=== PATIENT | male | born 1950 ===

== ENCOUNTER 2018-06-12 07:29 | Day surgery (SDC) | payer MEDICARE, OTHER ==
[~2018-06-12 07:29] MED LIST: Acetaminophen TAB* 325 MG PO PRN; Buffered Lidocaine 0.9% SYRIN* 5 ML/SYR SYRINGE INTRADERM ONE
[2018-06-12] MEDS ORDERED: fentaNYL* 50 MCG/ML 2 ML VIAL (100 MCG VIAL) ONE (09:32)
[2018-06-12] MEDS ORDERED: Midazolam* 1 MG/ML 2 ML VIAL (2 MG) ONE (09:32)
[2018-06-12 10:35] VITALS: BP 107/51
[2018-06-12] MEDS ORDERED: Cyclopentolate 1% OPTH.SOL* 2 ML BTL ONE (13:36)
[2018-06-12] MEDS ORDERED: Phenylephrine 2.5% OPTH.SOL* 2 ML BTL ONE (13:36)
[2018-06-12] MEDS ORDERED: Tetracaine 0.5% OPTH.SOL 4 ML* 1 DROP BTL ONE (13:36)
[2018-06-12] MEDS ORDERED: Ketorolac 0.5% OPHTH (NF) 0.5 % 5 ML BTL ONE (13:36)
[2018-06-12] MEDS ORDERED: Lidocaine 1%* 5 ML VIAL ONE (13:36)
[2018-06-12] MEDS ORDERED: Neomycin/Polymy/Dex OPHTH.OIN* 3.5 GM ONE (13:36)
[2018-06-12] MEDS ORDERED: Tropicamide 1% OPTH.SOL* BTL ONE (13:36)
--- NOTE | 2018-06-13 12:22 | OP ---
DATE OF OPERATION: 06/12/18 - [facility] DATE OF : 48 SURGEON: Dr. Geoffrey Mosquera AVIATION SUPPORT EQUIPMENT REPAIRER: None. ANESTHESIA: Topical with intravenous sedation. PRE-OP DIAGNOSIS: Cataract with astigmatism and glaucoma, right eye. POST-OP DIAGNOSIS: Cataract with astigmatism and glaucoma, right eye. OPERATIVE PROCEDURE: Phacoemulsification and cataract extraction with posterior chamber Toric intraocular lens implant, and iStent inject implant, right eye. COMPLICATIONS: None. BLOOD LOSS: None. DESCRIPTION OF PROCEDURE: The patient was seen preoperatively in the holding area where he was placed in an upright position. A julius was made at the 6 o' clock position of the limbus. The patient was brought to the operating room and given a small amount of intravenous sedation and topical tetracaine eye drops to the right eye. He was subsequently prepped and draped in the usual sterile fashion for ophthalmic surgery and attention was directed to the right eye where a speculum was placed. A paracentesis was created at the 11 o'clock position and 0.1 cc of 1% preservative- free lidocaine was injected into the anterior chamber followed by DisCoVisc. The eye was digitally stabilized while a 2.75 mm keratome was used to create a triplanar clear corneal incision at the 9 o'clock position. A continuous curvilinear capsulorrhexis was created with a cystotome and Utrata forceps. BSS on a cannula was used to hydrodissect the lens from the capsule. Phacoemulsification was performed in a divide-and- conquer technique to create 4 fragments, which were removed. Residual cortical material was removed with irrigation and aspiration. Healon was used to inflate the capsular bag. A Love marker was used to julius the 82 degree axis and SN6AT5 13.0 diopter lens was folded and inserted into the capsular bag. It was dialed to the appropriate axial alignment. Supplemental DisCoVisc was placed into the anterior chamber as well as onto the surface of cornea. The patient's head was rotated away from the surgery and microscope was rotated toward the surgeon. A gonioprism was placed on the surface of the eye. An iStent inject was introduced into the anterior chamber. Under the direct visualization, an iStent inject was placed at the 2 o'clock and again, at the 4 o'clock position. The iStent inject tray drier operator and gonioprism were removed. The patient's head and the microscope were returned to a neutral position. Irrigation and aspiration were performed to remove viscoelastic from the eye. The lens remained at the appropriate axial alignment. BSS in a cannula was used to hydrate the corneal stroma and seal the wound. At the end of the case, the pupil was round. The lens was centered and stable. The iStent inject seemed to be in good position. The eye pressure was normal and the wound was watertight. The speculum was removed and topical Maxitrol ointment was placed on the surface of the eye. The eye was closed, patched, and shielded and the patient was sent to the recovery room in stable condition with postoperative instructions and followup appointment given. [id number]/CPS #: [id number] JASKARAN
== END 2018-06-12 10:31 | disposition home or self-care (01) ==
LOC: OREAST 07:29
PROVIDERS: ATTEND Ophthalmology
DX: H26.9 Unspecified cataract (principal); H40.9 Unspecified glaucoma; H52.221 Regular astigmatism, right eye; C61 Malignant neoplasm of prostate; Z23 Encounter for immunization; Z87.891 Personal history of nicotine dependence
CPT/HCPCS: A9270-GY; C1783; J2250; J3010; V2787

== ENCOUNTER 2018-06-19 09:00 | Day surgery (SDC) | payer MEDICARE, OTHER ==
[2018-06-19] MEDS ORDERED: fentaNYL* 50 MCG/ML 2 ML VIAL (100 MCG VIAL) ONE (10:21)
[2018-06-19] MEDS ORDERED: Midazolam* 1 MG/ML 2 ML VIAL (2 MG) ONE (10:21)
[2018-06-19] MEDS ORDERED: Propofol* 10 MG/ML 20 ML BTL IV PUSH ONE (10:43)
[2018-06-19 11:09] VITALS: BP 114/66
[2018-06-19] MEDS ORDERED: Phenylephrine 2.5% OPTH.SOL* 2 ML BTL ONE (15:29)
[2018-06-19] MEDS ORDERED: Neomycin/Polymy/Dex OPHTH.OIN* 3.5 GM ONE (15:29)
[2018-06-19] MEDS ORDERED: Tropicamide 1% OPTH.SOL* BTL ONE (15:29)
[2018-06-19] MEDS ORDERED: Lidocaine 1%* 5 ML VIAL ONE (15:29)
[2018-06-19] MEDS ORDERED: Ketorolac 0.5% OPHTH (NF) 0.5 % 5 ML BTL ONE (15:29)
[2018-06-19] MEDS ORDERED: Tetracaine 0.5% OPTH.SOL 4 ML* 1 DROP BTL ONE (15:29)
[2018-06-19] MEDS ORDERED: Cyclopentolate 1% OPTH.SOL* 2 ML BTL ONE (15:29)
--- NOTE | 2018-06-19 21:24 | OP ---
DATE OF OPERATION: 06/19/18 - [facility] DATE OF : 48 SURGEON: Dr. Geoffrey Mosquera. SIGNALS COLLECTION TECHNICIAN: None. ANESTHESIA: Topical with intravenous sedation. PRE-OP DIAGNOSIS: Cataract with astigmatism and glaucoma, left eye. POST-OP DIAGNOSIS: Cataract with astigmatism and glaucoma, left eye. OPERATIVE PROCEDURE: Phacoemulsification and cataract extraction with posterior chamber Toric intraocular lens implant, and iStent Inject implant, left eye. COMPLICATIONS: None. BLOOD LOSS: None. DESCRIPTION OF PROCEDURE: The patient was seen preoperatively in the holding area where a julius was made at the 6 o'clock position of the limbus of his left eye while he was in an upright position. The patient was subsequently brought to the operating room where he was given intravenous sedation and topical tetracaine eye drops to the left eye. The patient was prepped and draped in the usual sterile fashion for ophthalmic surgery and attention was directed to the left eye where a speculum was placed. A paracentesis was created at the 5 o 'clock position and 0.1 cc of 1% preservative-free lidocaine was injected into the anterior chamber followed by DisCoVisc. The eye was digitally stabilized while a 2.75 mm keratome was used to create a triplanar clear corneal incision at the 3 o'clock position. A continuous curvilinear capsulorrhexis was created with a cystotome and Utrata forceps. BSS on a cannula was used to hydrodissect the lens from the capsule. Phacoemulsification was performed in a divide-and- conquer technique to create 4 fragments, which were removed. Residual cortical material was removed with irrigation and aspiration. Healon was used to inflate the capsular bag. A Love marker was used to julius the 82 degree axis on the limbus and an SN6AT3 14.5 diopter lens was folded and inserted into the capsular bag. It was dialed with [employer] hook to the appropriate axial alignment. DisCoVisc was then used to deepen the anterior chamber and coat the surface of the eye. The patient's head was rotated away from the surgeon and the microscope was rotated towards the surgeon. A gonioprism was placed on the surface of the eye. An iStent Inject carbon rod inserter was introduced into the anterior chamber. Under direct visualization, an iStent Inject was placed at the 8 o' clock and 10 o'clock positions in the trabecular meshwork. The prism and carbon rod inserter were removed. The patient's head and the microscope were returned to a neutral position. Irrigation and aspiration were performed to remove viscoelastic from the eye. The lens remained in good position and alignment. BSS on the cannula was used to hydrate the cornea and seal the wound. At the end of the case, the pupil was round. The lens was centered, stable, and axially aligned. The iStent were in place. The eye pressure appeared normal and the wound was watertight. The speculum was removed and topical Maxitrol ointment was placed on the surface of the eye. The eye was closed, patched, and shielded and the patient was sent to the recovery room in stable condition with postoperative instructions and followup appointment given. [id number]/CPS #: [id number] MTDD
== END 2018-06-19 11:15 | disposition home or self-care (01) ==
LOC: OREAST 09:00
PROVIDERS: ATTEND Ophthalmology
DX: H25.12 Age-related nuclear cataract, left eye (principal); H40.10X1 Unspecified open-angle glaucoma, mild stage; R07.9 Chest pain, unspecified; I45.10 Unspecified right bundle-branch block; Z87.891 Personal history of nicotine dependence
CPT/HCPCS: A9270-GY; C1783; J2250; J2704; J3010; V2787